=== PATIENT | female | born 1935 | race African-American/Black ===

== ENCOUNTER 2017-05-19 18:34 | Emergency (ER) | payer OTHER ==
[~2017-05-19] VITALS: Ht 157.5 cm; Wt 74.8 kg
[~2017-05-19 18:34] MED LIST: ALLOPURINOL 30300 M2 PO; AMLODIPINE BESY10 MG PO; ASPIRIN EC81 M1 PO; LOVASTAT20 PO
[2017-05-19 18:37] VITALS: BP 163/74
== END 2017-05-19 19:34 | disposition left against medical advice (07) ==
LOC: ER 18:34
DX: Z53.21 Procedure and treatment not carried out due to patient leaving prior to being seen by health care provider (principal)

== ENCOUNTER 2018-06-14 13:50 | Inpatient (IN) | payer OTHER ==
[~2018-06-14] VITALS: Ht 152.4 cm; Wt 61.2 kg
[2018-06-14 13:53] VITALS: BP 125/49
[2018-06-14] MEDS ORDERED: ACYCLOVIR 400400 MG PO (14:12)
[2018-06-14] MEDS ORDERED: VALACYCLOVIR1000 MG PO (14:14)
[2018-06-14 14:40] LABS: HEMATOCRIT 45.2 % (37.0-47.0); HEMOGLOBIN 14.9 gm/dL (12.0-15.0); MCH 28.6 pg (26.0-34.0); MCHC 32.9 g/dL (28.0-37.0); MCV 86.9 fL (80.0-100.0); RDW 15.6 % (10.5-14.5); WBC 10.4 thou/uL (4.0-11.0)
[2018-06-14 14:44] LABS: CALCIUM 9.2 mg/dL (8.5-10.1); CREATININE 1.3 mg/dL (0.6-1.0); POTASSIUM 3.8 mmol/L (3.5-5.1)
[2018-06-14 14:50] LABS: ALBUMIN 3.3 g/dL (3.4-5.0); TOTAL BILIRUBIN 0.5 mg/dL (<0.1-1.0); TOTAL PROTEIN 6.1 g/dL (6.4-8.2)
[2018-06-14 15:20] LABS: ABSOLUTE NEUTROPHILS 4.6 thou/uL (1.4-8.2); ATYPICAL LYMPHS 3 %
[2018-06-14 15:21] LABS: PLATELET COUNT 14 thou/uL (150-400)
[2018-06-14 15:41] VITALS: BP 113/60
[2018-06-14 16:38] VITALS: BP 137/63
[2018-06-14 17:05] VITALS: BP 138/62
[2018-06-14] MEDS ORDERED: HYDRALAZINE 2525 MG PO (20:02)
[2018-06-14] MEDS ORDERED: IMBRUVICA140 M1 PO (20:02)
[2018-06-14] MEDS ORDERED: HYZAAR 100-12.1 EACH PO (20:03)
[2018-06-14 21:30] VITALS: BP 167/72
[2018-06-15 04:30] VITALS: BP 157/72
[2018-06-15 06:41] LABS: HEMOGLOBIN 14.2 gm/dL (12.0-15.0)
[2018-06-15 06:43] LABS: HEMATOCRIT 42.2 % (37.0-47.0); MCH 29.5 pg (26.0-34.0); MCHC 33.7 g/dL (28.0-37.0); MCV 87.5 fL (80.0-100.0); RBC 4.82 mil/uL (4.20-5.00); RDW 15.5 % (10.5-14.5)
[2018-06-15 07:09] VITALS: BP 124/65
[2018-06-15 16:08] VITALS: BP 145/64
[2018-06-15 19:07] VITALS: BP 151/67
[2018-06-16 03:57] VITALS: BP 177/88
[2018-06-16 05:53] LABS: HEMATOCRIT 42.8 % (37.0-47.0); HEMOGLOBIN 13.9 gm/dL (12.0-15.0)
[2018-06-16 05:55] LABS: MCH 28.3 pg (26.0-34.0); MCHC 32.5 g/dL (28.0-37.0); MCV 87.3 fL (80.0-100.0); RBC 4.9 mil/uL (4.20-5.00); RDW 15.4 % (10.5-14.5)
[2018-06-16 06:03] LABS: WBC 26.6 thou/uL (4.0-11.0)
[2018-06-16 07:22] VITALS: BP 184/92
[2018-06-16 08:15] VITALS: BP 184/92
[2018-06-16 16:06] VITALS: BP 151/70
[2018-06-16 19:39] VITALS: BP 154/79
[2018-06-17 04:01] LABS: HEMATOCRIT 41.2 % (37.0-47.0); HEMOGLOBIN 13.5 gm/dL (12.0-15.0); MCH 28.6 pg (26.0-34.0); MCHC 32.7 g/dL (28.0-37.0); MCV 87.4 fL (80.0-100.0); RBC 4.71 mil/uL (4.20-5.00); RDW 15.7 % (10.5-14.5); WBC 30.3 thou/uL (4.0-11.0)
[2018-06-17 05:11] VITALS: BP 106/46
[2018-06-17 05:50] LABS: PLATELET COUNT 12 thou/uL (150-400)
[2018-06-17 05:51] LABS: ABSOLUTE NEUTROPHILS 28.5 thou/uL (1.4-8.2); ATYPICAL LYMPHS 3 %; NUCLEATED RBCS 2 /100WBC
[2018-06-17 05:52] LABS: LARGE PLATELETS SEVERAL; PLATELET ESTIMATE MARKEDLY DECREASED
[2018-06-17 07:14] VITALS: BP 156/80
[2018-06-17] MEDS ORDERED: KEFLEX500 M1 PO (10:22)
[2018-06-17] MEDS ORDERED: HYDROCODON-ACE1 EAC7 PO (10:23)
[2018-06-17] MEDS ORDERED: VALACYCLOVIR1000 MG PO (10:27)
[2018-06-17 12:50] VITALS: BP 156/80
== END 2018-06-17 15:46 | disposition home or self-care (01) | DRG 866 ==
LOC: ER 13:50 → 4E 15:41 → EROBS 15:41 → 4E 16:47 → ENTRNSPT 06-17 14:31 → EDTRNSPTSTS 06-17 14:33 → 4E 06-17 15:46
PROVIDERS: Hospitalist; Nurse Practitioner Family
DX: B02.7 Disseminated zoster (principal); L03.90 Cellulitis, unspecified; D69.3 Immune thrombocytopenic purpura; T38.0X5A Adverse effect of glucocorticoids and synthetic analogues, initial encounter; M10.9 Gout, unspecified; D72.829 Elevated white blood cell count, unspecified; Z96.1 Presence of intraocular lens; I10 Essential (primary) hypertension; Z85.6 Personal history of leukemia; Z98.42 Cataract extraction status, left eye; Z98.41 Cataract extraction status, right eye; Z79.82 Long term (current) use of aspirin; Z88.0 Allergy status to penicillin; Y92.89 Other specified places as the place of occurrence of the external cause
CPT/HCPCS: 10084